=== PATIENT | female | born 1985 | race Caucasian/White ===

== ENCOUNTER 2016-07-09 11:21 | Emergency (ER) | payer SELFPAY ==
[~2016-07-09] VITALS: Ht 160 cm; Wt 63.5 kg
[~2016-07-09 11:21] MED LIST: IBUP-1542 PO
[2016-07-09 11:26] VITALS: Ht 160 cm; Wt 63.5 kg
[2016-07-09] MEDS ORDERED: IBUPROFEN 600 MG TAB PO STA (12:49)
--- NOTE | 2016-07-09 14:48 | RADRPT ---
PROCEDURE: Left breast ultrasound. CLINICAL INDICATION: Left breast pain and tenderness, fibrocystic disease of breast TECHNIQUE: Left whole, four-quadrant, and retroareolar, breast and axillary sonography was perform ed. COMPARISON: None FINDINGS: No solid or suspicious masses. No areas of architectural distortion. No malignant adenopathy. IMPRESSION: No sonographic evidence of malignancy. ACR BIRADS 1: NEGATIVE. RPTAT: AA .Kae Dyer MD, MD Date Time Electronically viewed and signed by .Kae Dyer MD, MD on 07/09/2016 14:48 .F/
[2016-07-09] MEDS ORDERED: IBUP400T22 PO (14:51)
--- NOTE | 2016-07-09 15:19 | ERD ---
ER Documentation Chief Complaint Date/Time DATE: 07/09/16 TIME: 15:16 Chief Complaint left breast pain x 1 month HPI This is a 31-year-old female presenting to the emergency department complaining of left breast pain for the past 2 months. Patient states the pain is moderate to severe and worse when she takes off her bra. Patient states her last menstrual period was last month and was normal, she is expecting her menstrual period soon. Patient states that she has been seen by her primary care physician in regards to this in which she stated they did not have any recommendations for her. Patient has not taken any medications for this. She denies any fevers, nipple discharge or any lumps that she feels. ROS All systems reviewed and are negative except as per history of present illness. Medications Home Meds Active Scripts Ibuprofen* (Ibuprofen*) 400 Mg Tablet, 400 MG PO Q6H Y for PAIN, #30 TAB Prov:THONY MONTEJO PA-C 07/09/16 Ibuprofen* (Motrin*) 600 Mg Tab, 600 MG PO Q6, #30 TAB Prov:BUNNY JO PA-C 01/23/16 Allergies Allergies: Coded Allergies: No Known Allergies (Verified Allergy, Mild, 01/23/16) PMhx/Soc History of Surgery: Yes (RIKKI SALAZAR) Anesthesia Reaction: No Hx Neurological Disorder: No Hx Respiratory Disorders: No Hx Cardiac Disorders: No Hx Psychiatric Problems: No Hx Miscellaneous Medical Probl: No Hx Alcohol Use: No Hx Substance Use: No Hx Tobacco Use: No Physical Exam Vitals Vital Signs Date Time Temp Pulse Resp B/P Pulse Ox O2 Delivery O2 Flow Rate FiO2 07/09/16 11:26 98.1 60 18 106/71 98 Physical Exam GENERAL: no acute distress, non-toxic appearing, sitting up in bed HENT: normocephalic/atraumatic EYES: conjunctiva is normal NECK: no noticeable or palpable swelling, no carotid bruits, no JVD CARDIOVASCULAR: RRR, good S1S2, no murmurs or gallops heard PULM: clear to auscultation, no use of accessory muscles, no crackles or wheezes. ABDOMEN: normal bowel sounds, abdomen soft and nontender EXT: no edema, cyanosis or clubbing MUSCULOSKELETAL: Normal range of motion NEURO: alert and oriented SKIN: no rashes, skin warm and dry, no erythematous areas BREAST: Fibrocystic breast felt bilaterally, no lumps, erythema or induration. No axillary or supraclavicular lymphadenopathy felt PSYCH: normal mood Results 24 hrs Current Medications Medications (Trade) Dose Ordered Sig/Christopher Route PRN Reason Start Time Stop Time Status Last Admin Dose Admin Ibuprofen (Motrin) 600 mg ONCE STAT PO 07/09/16 12:49 07/09/16 12:51 DC 07/09/16 13:02 Procedures/MDM This is a 31-year-old female presenting to the emergency department complaining of left breast pain for the past couple months which is likely due to fibrocystic breast changes. There was no evidence of any masses, mastitis or cellulitis felt on exam. No evidence of lymphadenopathy. An ultrasound of the left breast was done and radiologist stated - No solid or suspicious masses. No areas of architectural distortion. No malignant adenopathy. No sonographic evidence of malignancy. Patient is suitable for discharge for home to follow-up with her OBSTETRICS AND GYNECOLOGY PROFESSOR for further evaluation management. Prescription for ibuprofen was provided. Discussed return to the emergency room for any worsening signs or symptoms. She understands and agrees with plan Departure Diagnosis: Primary Impression: Breast pain Condition: Stable Patient Instructions: Breast Self-Exam (BSE), Pain Management, Fibrocystic Breast Disease, Presumed Referrals: DOCTOR,NOT ON STAFF (PCP) Additional Instructions: Please follow up with your primary care physician for further testing and imaging Take all medicines as directed. Return to this facility if you are not improving as expected. THONY MONTEJO PA-C July 09, 2016 15:19
== END 2016-07-09 15:16 | disposition home or self-care (01) ==
LOC: FTE 11:21
DX: N64.4 Mastodynia (principal)
CPT/HCPCS: 76642; 99284

== ENCOUNTER 2016-09-11 07:54 | Emergency (ER) | payer MEDICAID ==
[~2016-09-11] VITALS: Ht 154.9 cm; Wt 60.0 kg
[~2016-09-11 07:54] MED LIST changes: +IBUP400T22 PO
[2016-09-11 07:57] VITALS: Ht 154.9 cm; Wt 60.0 kg
[2016-09-11] MEDS ORDERED: IBUP-1542 PO (09:31)
--- NOTE | 2016-09-11 09:52 | ERD ---
ER Documentation Chief Complaint Date/Time DATE: 09/11/16 TIME: 09:49 Chief Complaint lt breast pain x 5 months HPI This is a 31-year-old female presenting to the emergency department complaining of left breast pain for the past 5 months. Patient states that the pain has progressively worsened in this past few weeks, she states the pain is out of 10 and it radiates to her back. Patient states that when she takes a deep breath in the pain worsens. Patient states that her last menstrual period was on August 10 therefore she is about to start getting her period again. She has not tried any medications for this. She denies any fevers. Patient states that she has not been evaluated by her physician ROS All systems reviewed and are negative except as per history of present illness. Medications Home Meds Active Scripts Ibuprofen* (Ibuprofen*) 600 Mg Tablet, 600 MG PO Q6H Y for PAIN, #30 TAB Prov:THONY MONTEJO PA-C 09/11/16 Ibuprofen* (Ibuprofen*) 400 Mg Tablet, 400 MG PO Q6H Y for PAIN, #30 TAB Prov:THONY OMNTEJO PA-C 07/09/16 Ibuprofen* (Motrin*) 600 Mg Tab, 600 MG PO Q6, #30 TAB Prov:BUNNY JO PA-C 01/23/16 Allergies Allergies: Coded Allergies: No Known Allergies (Verified Allergy, Mild, 01/23/16) PMhx/Soc History of Surgery: No Anesthesia Reaction: No Hx Neurological Disorder: No Hx Respiratory Disorders: No Hx Cardiac Disorders: No Hx Psychiatric Problems: No Hx Miscellaneous Medical Probl: Yes (Left breast pain) Hx Alcohol Use: No Hx Substance Use: No Hx Tobacco Use: No Smoking Status: Never smoker Physical Exam Vitals Vital Signs Date Time Temp Pulse Resp B/P Pulse Ox O2 Delivery O2 Flow Rate FiO2 09/11/16 07:57 98.4 66 18 114/62 98 Physical Exam General: WD/WN, in no apparent distress, non-toxic appearing HENT: NC/AT Eyes: Conjunctiva normal Neck: Supple Pulm: Clear to auscultation, normal labored breathing; no wheezing/rales/ rhonchi heard BREAST: Fibrocystic breasts bilaterally, no axillary, supraclavicular lymphadenopathy felt CV: Good capillary refill GI: Non-distended, no guarding Back: No masses Ext: No clubbing, cyanosis, or edema Neuro: Moves on all fours Skin: Normal turgor, color, and temperature. No ulcerations or rashes noted. Psych: Normal mood Procedures/MDM This is a 31-year-old female presenting to the emergency department complaining of left breast pain for 5 months that has progressively worsened in this past month. I have reviewed patient's past chart. Patient appears clinically anxious and is concerned for malignancy therefore a breast ultrasound of the left breast was done and radiologist stated: No sonographic evidence of malignancy. However I have discussed with her that she would still need to follow-up with her primary care physician for further evaluation management. I discussed with her that it is up to her primary care physician to consider a mammogram. At this time it appears the patient has fibrocystic changes especially since she is about to start her menstrual period. There was no evidence of mastitis or breast abscess on examination. Patient appears well with stable vital signs. She stable to be discharged home with precautions to return emergency department for any worsening symptoms. Prescription for ibuprofen was provided. Patient understands and agrees with this plan. Departure Diagnosis: Primary Impression: Fibrocystic breast Laterality: left Qualified Code: N60.12 - Fibrocystic breast, left Additional Impression: Breast pain, left Condition: Stable Patient Instructions: What Are Fibrocystic Breasts? Additional Instructions: FOLLOW UP WITH YOUR PRIMARY CARE PHYSICIAN TOMORROW.Return to this facility if you are not improving as expected. Take all medicines as directed. Return to this facility if you are not improving as expected. THONY MONTEJO PA-C Sep 11, 2016 09:52
--- NOTE | 2016-09-11 09:57 | RADRPT ---
PROCEDURE: Left breast ultrasound, complete. CLINICAL INDICATION: 31-year-old female with left breast pain and fibrocystic changes. TECHNIQUE: Whole breast ultrasound is performed. COMPARISON: 07/12/2016 FINDINGS: Ultrasound of the breast shows no evidence of mass, cyst, fluid collection or other sonographic abno rmality. There is no evidence of axillary adenopathy. IMPRESSION: No sonographic evidence of malignancy. BIRADS 1 (Negative). Recommend clinical management. RPTAT: JJ .Constantin Schofield MD, Date Time Electronically viewed and signed by .Constantin Schofield MD, on 09/11/2016 09:57 .L/
== END 2016-09-11 10:12 | disposition home or self-care (01) ==
LOC: FTE 07:54
DX: N60.12 Diffuse cystic mastopathy of left breast (principal)
CPT/HCPCS: 76642; Z7502

== ENCOUNTER 2017-07-28 17:05 | Emergency (ER) | END 2017-07-28 17:20 | disposition home or self-care (01) ==